=== PATIENT | male | born 1945 | race Caucasian/White ===

== ENCOUNTER 2021-04-25 19:04 | Inpatient (IN) | payer MEDICARE ==
[~2021-04-25] VITALS: Ht 175.3 cm; Wt 70.3 kg
[2021-04-25 19:40] LABS: HEMOGLOBIN 15.5 gm/dl (14.0-17.5); RED BLOOD COUNT 4.82 M/UL (4.20-5.50); WHITE BLOOD COUNT 4.6 K/UL (4.5-11.0)
[2021-04-25 20:08] LABS: BUN/CREATININE RATIO 30 (0-10)
[2021-04-26] MEDS ORDERED: SINEMET CR 50/201 EA PO (01:07)
[2021-04-26] MEDS ORDERED: PRINIVIL20 MG PO (01:07)
[2021-04-26] MEDS ORDERED: PRAVASTATIN SOD40 MG PO (01:08)
[2021-04-26] MEDS ORDERED: FLONASE 0.05% N16 GM (01:08)
[2021-04-27 03:50] LABS: HEMOGLOBIN 13.9 gm/dl (14.0-17.5); RED BLOOD COUNT 4.39 M/UL (4.20-5.50); WHITE BLOOD COUNT 4.7 K/UL (4.5-11.0)
[2021-04-27 04:19] LABS: BUN/CREATININE RATIO 31 (0-10)
[2021-04-28 07:36] LABS: HEMOGLOBIN 14.4 gm/dl (14.0-17.5); RED BLOOD COUNT 4.56 M/UL (4.20-5.50)
[2021-04-28 07:37] LABS: WHITE BLOOD COUNT 6.8 K/UL (4.5-11.0)
[2021-04-28 08:00] LABS: BUN/CREATININE RATIO 24 (0-10)
[2021-04-29 06:41] LABS: WHITE BLOOD COUNT 7.9 K/UL (4.5-11.0)
[2021-04-29 06:49] LABS: BUN/CREATININE RATIO 28 (0-10)
[2021-04-30 07:22] LABS: HEMOGLOBIN 15.1 gm/dl (14.0-17.5); RED BLOOD COUNT 5.01 M/UL (4.20-5.50)
[2021-04-30 07:38] LABS: BUN/CREATININE RATIO 34 (0-10)
[2021-05-01 07:03] LABS: WHITE BLOOD COUNT 11.1 K/UL (4.5-11.0)
[2021-05-01 07:29] LABS: BUN/CREATININE RATIO 35 (0-10)
[2021-05-01 14:10] LABS: HEMOGLOBIN 15.1 gm/dl (14.0-17.5)
[2021-05-02 06:16] LABS: HEMOGLOBIN 14.6 gm/dl (14.0-17.5); RED BLOOD COUNT 4.6 M/UL (4.20-5.50); WHITE BLOOD COUNT 9.5 K/UL (4.5-11.0)
[2021-05-02 06:42] LABS: BUN/CREATININE RATIO 30 (0-10)
[2021-05-03 04:30] LABS: HEMOGLOBIN 14.1 gm/dl (14.0-17.5); RED BLOOD COUNT 4.72 M/UL (4.20-5.50); WHITE BLOOD COUNT 8.8 K/UL (4.5-11.0)
[2021-05-03 04:34] LABS: BUN/CREATININE RATIO 32 (0-10)
== END 2021-05-03 15:00 | DRG 177 ==
LOC: ER1 19:04 → CDU 04-26 01:49 → M/S 04-26 01:49
PROVIDERS: Internal Medicine; Physician Assistant; ADMIT Internal Medicine
PROC: 3E0333Z Introduction of Anti-inflammatory into Peripheral Vein, Percutaneous Approach (ICD-10-PCS; principal; 2021-04-26)
PROC: XW033E5 Introduction of Remdesivir Anti-infective into Peripheral Vein, Percutaneous Approach, New Technology Group 5 (ICD-10-PCS; 2021-04-26)
PROC: 8E0ZXY6 Isolation (ICD-10-PCS; 2021-04-26)
DX: U07.1 COVID-19 (principal); J12.82 Pneumonia due to coronavirus disease 2019; I21.A1 Myocardial infarction type 2; J15.9 Unspecified bacterial pneumonia; G20 Parkinson's disease; I10 Essential (primary) hypertension; E78.5 Hyperlipidemia, unspecified; J44.9 Chronic obstructive pulmonary disease, unspecified; R32 Unspecified urinary incontinence; I49.3 Ventricular premature depolarization; Z90.49 Acquired absence of other specified parts of digestive tract
CPT/HCPCS: 36415; 70450; 71045; 80048; 80053; 81001; 82550; 82553; 83735; 83874; 84439; 84443; 84484; 85014; 85018; 85025; 85027; 85379; 85610; 85730; 86140; 93005; 94640; 94760; 97116-GP-CQ; 97161; 97530-GP-CQ; 99285; J0456; J0696; J1100; J1650; J7030; U0002

== ENCOUNTER 2022-06-03 13:32 | Inpatient (IN) | payer MEDICARE ==
[~2022-06-03] VITALS: Ht 175.3 cm; Wt 72.6 kg
[~2022-06-03 13:32] MED LIST: CARBIDOPA-LEVO1 EAC4 PO; FLONASE 0.05% N16 GM; PRAVASTATIN SOD40 MG PO; PRINIVIL20 MG PO
[2022-06-03 14:04] LABS: HEMOGLOBIN 16.8 gm/dl (14.0-17.5); RED BLOOD COUNT 5.16 M/UL (4.20-5.50); WHITE BLOOD COUNT 15.3 K/UL (4.5-11.0)
[2022-06-03] MEDS ORDERED: PRAVASTATIN SOD40 MG PO (17:07)
[2022-06-03] MEDS ORDERED: SELEGILINE HCL5 M1 PO (17:07)
[2022-06-03] MEDS ORDERED: ASPIRIN EC81 MG PO (17:09)
--- NOTE | 2022-06-03 20:24 | NUR ---
NOTIFIED BY LAB OF A CRITICAL. [facility]- 37.3 AND [facility]-1.0% WHICH HAS IMPROVED AND DECREASED SINCE LAST LAB OF [facility] OF 37.3. WILL CONTIUE TO MONITOR.
--- NOTE | 2022-06-04 00:22 | NUR ---
NOTIFIED OF CRITICAL LAB OF [facility] 31.1 AND [facility] % OF 1.0. THIS IS A IMPROVING FROM LAST LAB OF [facility] 37.3. WILL CONTINUE TO MONITOR PATIENT.
[2022-06-04 06:11] LABS: HEMOGLOBIN 15.3 gm/dl (14.0-17.5); RED BLOOD COUNT 4.77 M/UL (4.20-5.50)
--- NOTE | 2022-06-04 07:07 | NUR ---
NOTIFIED OF CRITICAL LAB OF [facility] 27.2 WHICH IS AN IMPROVEMENT FROM LAST LAB DRAW. NOTIFIED DAY SHIFT NURSE.
[2022-06-04 17:55] LABS: CANDIDA ALBICANS Not Detected (Negative); CANDIDA KRUSEI Not Detected (Negative); CANDIDA TROPICALIS Not Detected (Negative); ESCHERICHIA COLI Not Detected (Negative); HAEMOPHILUS INFLUENZAE Not Detected (Negative); KLEBSIELLA OXYTOCA Not Detected (Negative); KLEBSIELLA PNEUMONIAE Not Detected (Negative); KPC-CARBAPENEM-RESISTANCE GENE Not Detected (Negative); PROTEUS Not Detected (Negative); PSEUDOMONAS AERUGINOSA Not Detected (Negative); SERRATIA MARCESANS Not Detected (Negative); STAPHYLOCOCCUS Not Detected (Negative); STAPHYLOCOCCUS AUREUS Not Detected (Negative); STREP AGALACTIAE (GROUP B) Not Detected (Negative); STREP PYOGENES (GROUP A) Not Detected (Negative); STREPTOCOCCUS Not Detected (Negative); vanA/B (VANCOMYCIN RESIST GENE Not Detected (Negative)
[2022-06-05 03:06] LABS: HEMOGLOBIN 14.7 gm/dl (14.0-17.5); RED BLOOD COUNT 4.72 M/UL (4.20-5.50); WHITE BLOOD COUNT 10.6 K/UL (4.5-11.0)
[2022-06-05 03:40] LABS: BUN/CREATININE RATIO 54 (0-10)
[2022-06-05 17:10] LABS: BUN/CREATININE RATIO 51 (0-10)
--- NOTE | 2022-06-05 23:54 | NUR ---
WHEN ATTEMPTING TO PASS MEDICATIONS PT HAD PULLED DOBHUFF OUT AND IT WAS LAYING IN THE BED, ALSO HAD PULLED TELEY OFF, REPLACED TELEY LEADS. ACESSED PT NO BLEEDING FROM NASAL AREA. APPROX [id number] NOTIFIED STATED TO " TO JUST LEAVE IT OUR AND THEY CAN DEAL WITH IT TOMMRROW"
[2022-06-06 03:36] LABS: BUN/CREATININE RATIO 45 (0-10)
[2022-06-07 05:08] LABS: BUN/CREATININE RATIO 39 (0-10)
[2022-06-08 04:55] LABS: BUN/CREATININE RATIO 32 (0-10)
[2022-06-08] MEDS ORDERED: FLOMAX 0.4 MG0.4 MG PO (09:17)
[2022-06-08] MEDS ORDERED: TYLENOL ELIXIR PO (09:17)
--- NOTE | 2022-06-08 11:47 | NUR ---
1120 - AMBULANCE RUN SCHEDULED. 1130 - FAXED DISCHARGE SUMMARY TO NURSE AT [facility]. 1145 - CALLED REPORT TO RITA AT [facility].
== END 2022-06-08 18:30 | DRG 683 ==
LOC: ER1 13:32 → M/S 15:20 → CDU 15:20 → M/S 16:16
PROVIDERS: Internal Medicine Infectious Disease; Nurse Practitioner; ADMIT Family Medicine
PROC: B24BZZZ Ultrasonography of Heart with Aorta (ICD-10-PCS; principal; 2022-06-04)
DX: N17.9 Acute kidney failure, unspecified (principal); E87.0 Hyperosmolality and hypernatremia; E87.2 Acidosis; N39.0 Urinary tract infection, site not specified; T79.6XXA Traumatic ischemia of muscle, initial encounter; G20 Parkinson's disease; I10 Essential (primary) hypertension; E78.5 Hyperlipidemia, unspecified; J44.9 Chronic obstructive pulmonary disease, unspecified; I44.7 Left bundle-branch block, unspecified; G93.89 Other specified disorders of brain; Z20.822 Contact with and (suspected) exposure to COVID-19; W01.0XXA Fall on same level from slipping, tripping and stumbling without subsequent striking against object, initial encounter; I25.10 Atherosclerotic heart disease of native coronary artery without angina pectoris; L89.322 Pressure ulcer of left buttock, stage 2; N32.0 Bladder-neck obstruction; R33.9 Retention of urine, unspecified; L89.312 Pressure ulcer of right buttock, stage 2; E83.52 Hypercalcemia; R53.81 Other malaise; R13.10 Dysphagia, unspecified; E86.0 Dehydration; L89.152 Pressure ulcer of sacral region, stage 2; N40.1 Benign prostatic hyperplasia with lower urinary tract symptoms; Z90.49 Acquired absence of other specified parts of digestive tract; Z79.899 Other long term (current) drug therapy
CPT/HCPCS: ECHO; 36415; 70450; 71045; 72125; 74230; 80048; 80053; 81001; 82330; 82550; 82553; 83605; 83690; 83735; 83874; 83880; 83970; 84484; 85025; 87040; 87077; 87086; 87150; 87186; 92526; 92610; 92611-GN; 93005; 93306; 96374; 97110; 97110-GP-CQ; 97162; 97166; 97530-GP-CQ; 99285; A6212; J0696; J1644; J1650; J2543; J3370; J7070; U0002